=== PATIENT | male | born 1950 | race Caucasian/White ===

== ENCOUNTER 2017-08-31 08:51 | Day surgery (SDC) | payer OTHER ==
[2017-08-31] MEDS ORDERED: POLYMYXIN/BACITRACIN 1L IRRIG ×2 (10:51)
[2017-08-31] MEDS ORDERED: LIDOCAINE 1% (MPF) 30 ML INJ (10:51)
[2017-08-31] MEDS ORDERED: BUPIVACAINE 0.25% (MPF) 30 ML INJ ×2 (10:51→11:27)
[2017-08-31] MEDS ORDERED: hydrALAzine 20 MG INJ IV (11:00)
[2017-08-31] MEDS ORDERED: GLUCOSE GEL 15 GRAM TUBE BUCCAL (11:00)
[2017-08-31] MEDS ORDERED: MIDAZOLAM 1 MG/ML 2 ML INJ IV (11:00)
[2017-08-31] MEDS ORDERED: EPHEDrine SULFATE 50 MG/5 ML SYG IV (11:00)
[2017-08-31] MEDS ORDERED: METOCLOPRAMIDE 10 MG INJ IV (11:00)
[2017-08-31] MEDS ORDERED: ALBUTEROL 0.083% (NEB) 2.5 MG/3 ML AMP HHN (11:00)
[2017-08-31] MEDS ORDERED: FENTAnyl 50 MCG/ML VIAL IV ×2 (11:00)
[2017-08-31] MEDS ORDERED: HYDROmorphONE (0.2 MG/ML) 10ML SYG IV ×2 (11:00)
[2017-08-31] MEDS ORDERED: GLUCAGON 1 MG INJ IM (11:00)
[2017-08-31] MEDS ORDERED: DIPHENHYDRAMINE 50 MG INJ IV (11:00)
[2017-08-31] MEDS ORDERED: GLUCOSE GEL 15 GRAM TUBE PO ×2 (11:00)
[2017-08-31] MEDS ORDERED: MEPERIDINE 25 MG INJ IV (11:00)
[2017-08-31] MEDS ORDERED: LABETALOL HCL 20MG INJ IV (11:00)
[2017-08-31] MEDS ORDERED: OXYCODONE/ACETAMINOPHEN (5/325) TAB PO ×2 (11:00)
[2017-08-31] MEDS ORDERED: ONDANSETRON 4 MG INJ IV (11:00)
[2017-08-31] MEDS ORDERED: KETOROLAC 30 MG INJ IV (11:00)
[2017-08-31] MEDS ORDERED: DEXTROSE 50% 50 ML SYRINGE IV ×2 (11:00)
[2017-08-31] MEDS ORDERED: MIDAZOLAM 1 MG/ML 2 ML INJ (11:04)
[2017-08-31] MEDS ORDERED: FENTAnyl 50 MCG/ML VIAL (11:04)
[2017-08-31] MEDS: BUPIVACAINE 0.25% (MPF) 30 ML INJ INJ (11:30)
[2017-08-31] MEDS ORDERED: morphine 2 MG INJ IV (12:00)
[2017-08-31] MEDS ORDERED: PROPOFOL 20 ML (12:04)
[2017-08-31] MEDS ORDERED: LIDOCAINE 2% (SDV) 5 ML INJ (12:04)
[2017-08-31] MEDS ORDERED: CEFAZOLIN 1 GM INJ (12:04)
== END 2017-08-31 14:25 | disposition home or self-care (01) ==
LOC: SDS 08:51
DX: Z45.02 Encounter for adjustment and management of automatic implantable cardiac defibrillator (principal); E11.9 Type 2 diabetes mellitus without complications; I10 Essential (primary) hypertension; J44.9 Chronic obstructive pulmonary disease, unspecified; I25.10 Atherosclerotic heart disease of native coronary artery without angina pectoris; I50.9 Heart failure, unspecified
CPT/HCPCS: 33263; 82962